=== PATIENT | female | born 1935 | race Caucasian/White ===

== ENCOUNTER 2016-11-09 11:21 | Emergency (ER) | payer MEDICARE, OTHER ==
[2016-11-09 14:07] LABS: RED BLOOD COUNT 3.98 M/UL (4.00-5.10); WHITE BLOOD COUNT 8.8 K/UL (4.5-11.0)
[2016-11-09 19:28] LABS: HEMOGLOBIN 8.7 gm/dl (12.3-15.3)
== END 2016-11-09 20:15 | disposition home or self-care (01) ==
LOC: ER1 11:21
PROVIDERS: Family Medicine
DX: D64.9 Anemia, unspecified (principal); K27.9 Peptic ulcer, site unspecified, unspecified as acute or chronic, without hemorrhage or perforation; R06.09 Other forms of dyspnea; I48.91 Unspecified atrial fibrillation; E11.9 Type 2 diabetes mellitus without complications; Z87.891 Personal history of nicotine dependence; Z88.0 Allergy status to penicillin; Z88.1 Allergy status to other antibiotic agents; Z88.8 Allergy status to other drugs, medicaments and biological substances; Z79.01 Long term (current) use of anticoagulants; Z79.82 Long term (current) use of aspirin; Z79.84 Long term (current) use of oral hypoglycemic drugs; Z79.899 Other long term (current) drug therapy
CPT/HCPCS: 36415; 36430; 71010; 80053; 81001; 82550; 82553; 83874; 84484; 85014; 85018; 85025; 85610; 85730; 86850; 86900; 86901; 86920; 93005; 99284; P9016

== ENCOUNTER → 2017-01-16 | Outpatient (CLI) | payer MEDICARE, OTHER | LOC: RAD 07:56 | DX: D64.9 Anemia, unspecified (principal); K59.00 Constipation, unspecified | CPT/HCPCS: 74250 ==

== ENCOUNTER → 2020-10-11 | Outpatient (CLI) | payer MEDICARE, OTHER ==
[~2020-10-11] MED LIST: BENTYL 20MG TAB20 MG PO; CELEBREX 200MG200 MG PO
== END ==
LOC: HEART 5 08:30
DX: R07.9 Chest pain, unspecified (principal); I25.10 Atherosclerotic heart disease of native coronary artery without angina pectoris; I34.0 Nonrheumatic mitral (valve) insufficiency; I07.1 Rheumatic tricuspid insufficiency
CPT/HCPCS: 93304

== ENCOUNTER → 2021-01-12 | Outpatient (CLI) | payer MEDICARE, OTHER | LOC: EXRD 12-12 11:00 | DX: N17.9 Acute kidney failure, unspecified (principal) | CPT/HCPCS: 76775 ==

== ENCOUNTER → 2021-09-28 | Outpatient (CLI) | payer MEDICARE, OTHER | LOC: KOH-I 13:00 | DX: G45.4 Transient global amnesia (principal); R41.0 Disorientation, unspecified; R40.4 Transient alteration of awareness | CPT/HCPCS: 93880 ==

== ENCOUNTER 2021-11-01 11:59 | Inpatient (IN) | payer MEDICARE, OTHER ==
[~2021-11-01] VITALS: Ht 162.6 cm; Wt 91.2 kg
[2021-11-01 12:39] LABS: HEMOGLOBIN 11.9 gm/dl (12.3-15.3); RED BLOOD COUNT 3.54 M/UL (4.00-5.10); WHITE BLOOD COUNT 5.1 K/UL (4.5-11.0)
[2021-11-01] MEDS ORDERED: ATENOLOL50 MG PO (18:54)
[2021-11-01] MEDS ORDERED: ALLOPURINOL300 MG PO (18:54)
[2021-11-01] MEDS ORDERED: SPIRONOLACTONE25 MG PO (18:54)
[2021-11-01] MEDS ORDERED: LEVOTHYROXINE25 MCG PO (18:55)
[2021-11-01] MEDS ORDERED: CARDIZEM CD180 MG PO (18:55)
[2021-11-01] MEDS ORDERED: ZETIA10 MG PO (18:55)
[2021-11-01] MEDS ORDERED: CYCLOBENZAPRINE10 MG PO (18:55)
[2021-11-01] MEDS ORDERED: METFORMIN HCL500 MG PO (18:56)
[2021-11-01] MEDS ORDERED: JANUVIA100 MG PO (18:56)
[2021-11-01] MEDS ORDERED: PROTONIX 40 MG40 M1 PO (18:56)
[2021-11-01] MEDS ORDERED: ALPRAZOLAM0.5 MG PO (18:57)
[2021-11-01] MEDS ORDERED: DOCUSATE SODIU100 MG PO (18:57)
[2021-11-01] MEDS ORDERED: FUROSEMIDE40 MG PO (18:57)
[2021-11-01] MEDS ORDERED: DIPHENHYDRAMINE25 M2 PO (18:58)
[2021-11-02 03:05] LABS: HEMOGLOBIN 11.1 gm/dl (12.3-15.3); RED BLOOD COUNT 3.3 M/UL (4.00-5.10)
[2021-11-02 03:32] LABS: BUN/CREATININE RATIO 16 (0-10)
[2021-11-03 03:23] LABS: HEMOGLOBIN 11.5 gm/dl (12.3-15.3); RED BLOOD COUNT 3.43 M/UL (4.00-5.10)
[2021-11-04 05:59] LABS: HEMOGLOBIN 11.3 gm/dl (12.3-15.3); RED BLOOD COUNT 3.37 M/UL (4.00-5.10)
[2021-11-05 04:24] LABS: HEMOGLOBIN 11.6 gm/dl (12.3-15.3); RED BLOOD COUNT 3.48 M/UL (4.00-5.10); WHITE BLOOD COUNT 6.2 K/UL (4.5-11.0)
[2021-11-05 04:51] LABS: BUN/CREATININE RATIO 19 (0-10)
[2021-11-06 07:21] LABS: HEMOGLOBIN 12.1 gm/dl (12.3-15.3); RED BLOOD COUNT 3.55 M/UL (4.00-5.10)
[2021-11-06 07:41] LABS: BUN/CREATININE RATIO 19 (0-10)
[2021-11-07 03:40] LABS: HEMOGLOBIN 11.5 gm/dl (12.3-15.3); RED BLOOD COUNT 3.41 M/UL (4.00-5.10); WHITE BLOOD COUNT 5.6 K/UL (4.5-11.0)
[2021-11-07] MEDS ORDERED: POLYETHYLENE GL17 GM PO (12:14)
[2021-11-07] MEDS ORDERED: ALPRAZOLAM0.5 MG PO (12:14)
[2021-11-07] MEDS ORDERED: JARDIANCE10 MG PO (12:14)
--- NOTE | 2021-11-07 15:22 | NUR ---
report given to yomaira admitting nurse. notified nat at [facility]
== END 2021-11-07 16:07 | DRG 193 ==
LOC: ER1 11:59 → M/S 20:23
PROVIDERS: Physician Assistant; ADMIT Internal Medicine
PROC: B24BZZZ Ultrasonography of Heart with Aorta (ICD-10-PCS; principal; 2021-11-02)
DX: J18.9 Pneumonia, unspecified organism (principal); I50.33 Acute on chronic diastolic (congestive) heart failure; J96.21 Acute and chronic respiratory failure with hypoxia; I13.0 Hypertensive heart and chronic kidney disease with heart failure and stage 1 through stage 4 chronic kidney disease, or unspecified chronic kidney disease; Z20.822 Contact with and (suspected) exposure to COVID-19; I48.20 Chronic atrial fibrillation, unspecified; K92.2 Gastrointestinal hemorrhage, unspecified; D69.6 Thrombocytopenia, unspecified; I27.20 Pulmonary hypertension, unspecified; I48.0 Paroxysmal atrial fibrillation; E66.9 Obesity, unspecified; E11.22 Type 2 diabetes mellitus with diabetic chronic kidney disease; M19.90 Unspecified osteoarthritis, unspecified site; M10.9 Gout, unspecified; E83.42 Hypomagnesemia; E03.9 Hypothyroidism, unspecified; N18.30 Chronic kidney disease, stage 3 unspecified; E78.5 Hyperlipidemia, unspecified; K21.9 Gastro-esophageal reflux disease without esophagitis; F41.9 Anxiety disorder, unspecified; K59.00 Constipation, unspecified; R53.81 Other malaise; Z79.01 Long term (current) use of anticoagulants; Z86.73 Personal history of transient ischemic attack (TIA), and cerebral infarction without residual deficits; Z79.4 Long term (current) use of insulin; Z90.12 Acquired absence of left breast and nipple; Z90.49 Acquired absence of other specified parts of digestive tract; Z90.710 Acquired absence of both cervix and uterus; Z95.810 Presence of automatic (implantable) cardiac defibrillator; Z88.1 Allergy status to other antibiotic agents; Z88.5 Allergy status to narcotic agent; Z88.0 Allergy status to penicillin; Z98.890 Other specified postprocedural states
CPT/HCPCS: ECHO; 0240U; 36415; 71045; 80053; 81001; 82550; 82553; 82962; 83036; 83605; 83735; 83880; 84100; 84484; 85025; 86140; 87040; 87086; 93005; 93306; 96374; 97116; 97116-GP-CQ; 97162; 97165; 97530; 97530-GP-CQ; 99285; A6212; J1160; J1650; J1940; J2185; J3475; U0002

== ENCOUNTER 2021-11-12 16:39 | Observation (INO) | payer MEDICARE, OTHER ==
[~2021-11-12] VITALS: Ht 162.6 cm; Wt 83.2 kg
[~2021-11-12 16:39] MED LIST changes: +ALLOPURINOL300 MG PO; +ALPRAZOLAM0.5 MG PO; +ATENOLOL50 MG PO; +CARDIZEM CD180 MG PO; +CYCLOBENZAPRINE10 MG PO; +DIPHENHYDRAMINE25 M2 PO; +DOCUSATE SODIU100 MG PO; +FUROSEMIDE40 MG PO; +JANUVIA100 MG PO; +JARDIANCE10 MG PO; +LEVOTHYROXINE25 MCG PO; +METFORMIN HCL500 MG PO; +POLYETHYLENE GL17 GM PO; +PROTONIX 40 MG40 M1 PO; +SPIRONOLACTONE25 MG PO; +ZETIA10 MG PO
[2021-11-12 17:20] LABS: HEMOGLOBIN 12.2 gm/dl (12.3-15.3); RED BLOOD COUNT 3.59 M/UL (4.00-5.10)
[2021-11-12 18:10] LABS: BUN/CREATININE RATIO 17 (0-10)
[2021-11-12] MEDS ORDERED: CHRONULAC20 GM/30 M PO (23:40)
[2021-11-12] MEDS ORDERED: CLARITIN10 M2 PO (23:41)
[2021-11-14] MEDS ORDERED: LOPRESSOR 25 MG25 MG PO (11:46)
[2021-11-14] MEDS ORDERED: ELIQUIS2.5 MG PO (11:56)
--- NOTE | 2021-11-14 14:12 | NUR ---
REPORT CALLED TO DAPHNYE AT [facility]. WILL CALL FOR EMS NOW. PT AND PT FAMILY UPDATED.
[2021-11-14] MEDS ORDERED: ALPRAZOLAM0.5 MG PO (14:33)
== END 2021-11-14 17:30 ==
LOC: ER1 16:39 → CDU 19:08 → PROG CARE 19:08
PROVIDERS: Physician Assistant; ADMIT Internal Medicine Infectious Disease
DX: I48.20 Chronic atrial fibrillation, unspecified (principal); Z20.822 Contact with and (suspected) exposure to COVID-19; I11.0 Hypertensive heart disease with heart failure; I50.32 Chronic diastolic (congestive) heart failure; E11.9 Type 2 diabetes mellitus without complications; K21.9 Gastro-esophageal reflux disease without esophagitis; M10.9 Gout, unspecified; E78.5 Hyperlipidemia, unspecified; E03.9 Hypothyroidism, unspecified; I27.20 Pulmonary hypertension, unspecified; Z79.84 Long term (current) use of oral hypoglycemic drugs; Z79.899 Other long term (current) drug therapy; Z86.73 Personal history of transient ischemic attack (TIA), and cerebral infarction without residual deficits; Z88.0 Allergy status to penicillin; Z88.1 Allergy status to other antibiotic agents; Z88.5 Allergy status to narcotic agent; Z88.6 Allergy status to analgesic agent
CPT/HCPCS: 36415; 71045; 80048; 80053; 81001; 82550; 82553; 84439; 84443; 84484; 85025; 85610; 93005; 96374; 96375; 97116; 97162; 99285; G0378; J1160; U0002

== ENCOUNTER 2021-12-25 15:09 | Observation (INO) | payer MEDICARE, OTHER ==
[~2021-12-25 15:09] MED LIST changes: +CHRONULAC20 GM/30 M PO; +CLARITIN10 MG PO; +ELIQUIS2.5 MG PO; +LOPRESSOR 25 MG25 MG PO
[2021-12-25 16:27] LABS: HEMOGLOBIN 11.2 gm/dl (12.3-15.3); RED BLOOD COUNT 3.31 M/UL (4.00-5.10); WHITE BLOOD COUNT 5.3 K/UL (4.5-11.0)
[2021-12-25 16:59] LABS: BUN/CREATININE RATIO 22 (0-10)
[2021-12-25] MEDS ORDERED: ALPRAZOLAM0.5 MG PO (18:39)
[2021-12-25] MEDS ORDERED: JARDIANCE25 MG PO (18:41)
[2021-12-25] MEDS ORDERED: LIDOCAINE PAIN1 EACH TP (18:42)
[2021-12-25] MEDS ORDERED: SODIUM CHLORIDE3 ML INH (18:42)
[2021-12-25] MEDS ORDERED: TRAMADOL HCL50 MG PO (18:42)
[2021-12-25] MEDS ORDERED: DODEX1000 MCG/1 INJ (18:42)
[2021-12-25] MEDS ORDERED: VOLTAREN ARTHRI20 GM TOP (18:43)
[2021-12-25] MEDS ORDERED: ASPIRIN EC81 MG PO (18:43)
[2021-12-25] MEDS ORDERED: TYLENOL EXTRA500 MG PO (18:43)
[2021-12-25] MEDS ORDERED: ZINC OXIDE2500 GM TOP (18:44)
[2021-12-26 07:05] LABS: HEMOGLOBIN 10.9 gm/dl (12.3-15.3); RED BLOOD COUNT 3.24 M/UL (4.00-5.10); WHITE BLOOD COUNT 5.1 K/UL (4.5-11.0)
[2021-12-26 07:34] LABS: BUN/CREATININE RATIO 24 (0-10)
[2021-12-27] MEDS ORDERED: ALPRAZOLAM0.5 MG PO (08:47)
[2021-12-27] MEDS ORDERED: LOPRESSOR 25 MG25 MG PO ×2 (08:47→12:28)
[2021-12-27] MEDS ORDERED: TRAMADOL HCL50 MG PO (12:28)
[2021-12-27] MEDS ORDERED: CARDIZEM 30MG T30 MG PO (12:28)
[2021-12-28 07:26] LABS: KPC-CARBAPENEM-RESISTANCE GENE Not Detected (Negative)
[2021-12-28 07:27] LABS: CANDIDA ALBICANS Not Detected (Negative); CANDIDA KRUSEI Not Detected (Negative); CANDIDA TROPICALIS Not Detected (Negative); ESCHERICHIA COLI Not Detected (Negative); HAEMOPHILUS INFLUENZAE Not Detected (Negative); KLEBSIELLA OXYTOCA Not Detected (Negative); KLEBSIELLA PNEUMONIAE Not Detected (Negative); PROTEUS Not Detected (Negative); PSEUDOMONAS AERUGINOSA Not Detected (Negative); SERRATIA MARCESANS Not Detected (Negative); STAPHYLOCOCCUS AUREUS Not Detected (Negative); STREP AGALACTIAE (GROUP B) Not Detected (Negative); STREP PYOGENES (GROUP A) Not Detected (Negative); STREPTOCOCCUS Not Detected (Negative); vanA/B (VANCOMYCIN RESIST GENE Not Detected (Negative)
[2021-12-28 09:58] LABS: STAPHYLOCOCCUS DETECTED (Negative)
== END 2021-12-27 17:03 ==
LOC: ER1 15:09 → CDU 18:19 → MED SURG 4 18:19
PROVIDERS: Emergency Medicine; Internal Medicine; ADMIT Internal Medicine Infectious Disease
DX: R07.89 Other chest pain (principal); I48.20 Chronic atrial fibrillation, unspecified; N17.9 Acute kidney failure, unspecified; E11.22 Type 2 diabetes mellitus with diabetic chronic kidney disease; I13.0 Hypertensive heart and chronic kidney disease with heart failure and stage 1 through stage 4 chronic kidney disease, or unspecified chronic kidney disease; N18.30 Chronic kidney disease, stage 3 unspecified; I50.30 Unspecified diastolic (congestive) heart failure; E03.9 Hypothyroidism, unspecified; K21.9 Gastro-esophageal reflux disease without esophagitis; M10.9 Gout, unspecified; R06.02 Shortness of breath; R11.0 Nausea; J98.11 Atelectasis; J90 Pleural effusion, not elsewhere classified; I95.9 Hypotension, unspecified; Z86.73 Personal history of transient ischemic attack (TIA), and cerebral infarction without residual deficits; Z95.810 Presence of automatic (implantable) cardiac defibrillator; Z88.1 Allergy status to other antibiotic agents; Z88.5 Allergy status to narcotic agent; Z88.0 Allergy status to penicillin
CPT/HCPCS: 36415; 71045; 80048; 80053; 82550; 82553; 83735; 84484; 85025; 85027; 87040; 87077; 87150; 87186; 93005; 94640; 94664; 94760; 96374; 96375; 96376; 99285; G0378; J2185; J3475